=== PATIENT | female | born 1960 | race African-American/Black ===

== ENCOUNTER 2017-08-01 10:55 | Emergency (ER) | payer OTHER ==
--- NOTE | 2017-08-01 11:29 | RAD ---
PORTABLE CHEST: HISTORY: Cough. COMPARISON: 09/19/2010 FINDINGS: Heart size and mediastinum are within normal limits. The lungs are clear of infiltrates. No signif icant bony findings. IMPRESSION: No active intrathoracic disease. POS: [facility]
[2017-08-01 11:45] LABS: #Eosinphils 0.2 thou/uL (0.0-0.7); #Lymphocytes 1.7 thou/uL (1.20-3.40); #Monocytes 0.7 thou/uL (0.11-0.59); #Neutrophils 3.1 thou/uL (1.40-6.50); %Basophils 0.4 % (0.0-1.0); %Lymphocytes 29.8 % (21.0-51.0); %Monocytes 11.7 % (0.0-10.0); Hematocrit 41.4 % (36.0-47.0); Mean Platelet Volume 8.5 fL (7.4-10.4); White Blood Cell (WBC) Count 5.7 thou/uL (4.8-10.8)
[2017-08-01 12:05] LABS: ALT (SGPT) 14 U/L (8-55); AST (SGOT) 20 U/L (5-34); Alkaline Phosphatase 60 U/L (40-150); Anion Gap 16 mmol/L (10-20); BUN (Urea Nitrogen) 13 mg/dL (9.8-20.1); Bilirubin, Total 0.6 mg/dL (0.2-1.2); CK (CPK) 240 U/L (29-168); Calc. Creatinine Clearance 0 mL/min (70-130); Calcium 9.1 mg/dL (7.8-10.44); Carbon Dioxide 24 mmol/L (22-29); Chloride 103 mmol/L (98-107); Estimated GFR-MDRD 88; Globulin 4.1 g/dL (2.4-3.5); Protein, Total 8.2 g/dL (6.0-8.3)
[2017-08-01] MEDS ORDERED: methylPREDNISolone Sod Succ/PF 125 MG/2 ML VIAL ONE (12:07)
[2017-08-01] MEDS ORDERED: Sterile Water 10 ML ONE (12:07)
[2017-08-01] MEDS ORDERED: Promethazine HCl 25 MG/ML VIAL ONE (12:07)
[2017-08-01] MEDS ORDERED: Albuterol Sulfate 2.5 mg/0.5 ml Neb ONE (12:09)
[2017-08-01] MEDS ORDERED: Sodium Chloride For Inhalation 0.9% 3 ML NEB ONE ×2 (12:09→13:34)
[2017-08-01 12:10] LABS: Troponin I Less than 0.010 ng/mL (< 0.028)
[2017-08-01] MEDS ORDERED: Albuterol Sulfate 1.25 MG/3 ML NEB ONE (13:34)
== END 2017-08-01 14:30 | disposition home or self-care (01) ==
LOC: ERS 10:55
DX: J44.1 Chronic obstructive pulmonary disease with (acute) exacerbation (principal); I10 Essential (primary) hypertension; F32.9 Major depressive disorder, single episode, unspecified; F41.9 Anxiety disorder, unspecified; F17.210 Nicotine dependence, cigarettes, uncomplicated; Z79.899 Other long term (current) drug therapy
CPT/HCPCS: 36415; 71010; 80053; 82550; 82553; 84484; 85025; 94640; 96365; 96375; A4216; J2550; J2930; J7611

== ENCOUNTER 2017-10-14 21:12 | Observation (INO) | payer OTHER ==
[2017-10-14 22:20] LABS: #Basophils 0.1 thou/uL (0.0-0.2); #Eosinphils 0.2 thou/uL (0.0-0.7); #Lymphocytes 1.7 thou/uL (1.20-3.40); #Monocytes 0.4 thou/uL (0.11-0.59); #Neutrophils 1.6 thou/uL (1.40-6.50); %Basophils 1.4 % (0.0-1.0); %Eosinophils 5.9 % (0.0-10.0); %Lymphocytes 43.8 % (21.0-51.0); %Monocytes 9.8 % (0.0-10.0); %Neutrophils 39.1 % (42.0-75.0); Hemoglobin 12.9 g/dL (12.0-16.0); Mean Corpuscular HGB CONC 32.2 g/dL (32.0-36.0); Mean Corpuscular Hemoglobin 27.6 pg (27.0-31.0); Mean Corpuscular Volume 85.5 fl (81.0-99.0); Mean Platelet Volume 8.6 fL (7.4-10.4); Platelet Count 218 thou/uL (130-400); RBC Distribution Width 11.9 % (11.5-14.5); Red Blood Cell (RBC) Count 4.68 mill/uL (4.20-5.40)
[2017-10-14 22:41] LABS: ALT (SGPT) 12 U/L (8-55); AST (SGOT) 19 U/L (5-34); Albumin 4.6 g/dL (3.5-5.0); Alkaline Phosphatase 69 U/L (40-150); Anion Gap 12 mmol/L (10-20); BUN (Urea Nitrogen) 10 mg/dL (9.8-20.1); Bilirubin, Total 0.4 mg/dL (0.2-1.2); Calc. Creatinine Clearance 0 mL/min (70-130); Calcium 9.7 mg/dL (7.8-10.44); Carbon Dioxide 28 mmol/L (22-29); Chloride 101 mmol/L (98-107); Estimated GFR-MDRD 83; Globulin 3.5 g/dL (2.4-3.5); Glucose 85 mg/dL (70-105); Potassium 3.6 mmol/L (3.5-5.1); Protein, Total 8.1 g/dL (6.0-8.3); Sodium 137 mmol/L (136-145)
[2017-10-15 00:14] LABS: INR-International Normal Ratio 0.9; Prothrombin Time 12.5 SEC (12.0-14.7)
[2017-10-15 00:20] LABS: CKMB 0.9 ng/mL (0-6.6); Troponin I Less than 0.010 ng/mL (< 0.028)
[2017-10-15] MEDS ORDERED: Acetaminophen 500 MG TAB ONE (01:22)
[2017-10-15] MEDS ORDERED: diphenhydrAMINE 25 MG CAP ONE (01:22)
[2017-10-15] MEDS ORDERED: Clopidogrel Bisulfate 75 MG TAB ONE ×2 (01:28→08:32)
[2017-10-15] MEDS ORDERED: Metoclopramide HCl 10 MG TAB PO SCH (01:45)
[2017-10-15] MEDS ORDERED: Bupivacaine 0.5% 10 ML VIAL ONE (04:07)
[2017-10-15] MEDS ORDERED: Albuterol Sulfate 1.25 MG/3 ML NEB NEB PRN (04:57)
[2017-10-15] MEDS ORDERED: diphenhydrAMINE 50 MG/ML VIAL IVP SCH (05:42)
[2017-10-15] MEDS ORDERED: Metoclopramide HCl 10 MG/2 ML VIAL IVP SCH (05:42)
[2017-10-15] MEDS ORDERED: Metoclopramide HCl 10 MG/2 ML VIAL IVP PRN (05:42)
--- NOTE | 2017-10-15 08:02 | RAD ---
FRONTAL VIEW CHEST: INDICATION: Weakness, stroke. FINDINGS: Lungs are hyperinflated. There is no consolidation or effusion. Cardiac silhouette is accentuated b y the portable technique. Reference is made to 08/01/17. IMPRESSION: No lobar consolidation. POS: [facility]
--- NOTE | 2017-10-15 08:42 | CT ---
PRELIMINARY REPORT/[facility]/EMERGENCY AFTER HOURS PROCEDURE: EXAM: CT Head Without Intravenous Contrast EXAM DATE/TIME: Exam ordered 10/15/2017 12:39 AM CLINICAL HISTORY: 56 years old, female; Signs and symptoms; Dizziness TECHNIQUE: Axial computed tomography images of the head/brain without intravenous contrast. COMPARISON: No relevant prior studies available. FINDINGS: Brain: Mild generalized volume loss of the brain. No hemorrhage. No significant white matter disease. Ventricles: Unremarkable. No ventriculomegaly. Bones/joints: Unremarkable. No acute fracture. Soft tissues: Unremarkable. Sinuses: Unremarkable as visualized. No acute sinusitis. Mastoid air cells: Unremarkable as visualized. No mastoid effusion. IMPRESSION: No acute findings. Thank you for allowing us to participate in the care of your patient. Dictated and Authenticated by: Leadner Vale MD 10/15/2017 12:57 AM Central Time ([place] & [place]) FINAL REPORT HEAD CT NONCONTRAST: FINDINGS/IMPRESSION: Agree with preliminary interpretation. No acute intracranial hemorrhage or mass effect. QA POS: [facility]
[2017-10-15] MEDS ORDERED: Acetaminophen 325 MG TAB ONE (09:03)
[2017-10-15] MEDS ORDERED: Simethicone Chewable 80 MG TAB PO PRN (11:12)
--- NOTE | 2017-10-15 11:22 | MRI ---
MRI BRAIN WITHOUT CONTRAST: TECHNIQUE: Multiplanar multisequential imaging of brain obtained. HISTORY: Headache. Tooth pain. Right facial numbness and dizziness. FINDINGS: Ventricles are normal size and position. There is no evidence of restricted diffusion. There is no evidence of infarct, mass, or edema. Very mild ischemic white matter changes are seen. Intracranial internal carotid arteries, cerebral arteries, and basilar arteries show flow voids. Dural venous si nuses are patent. Paranasal sinuses and mastoids appear clear. IMPRESSION: No acute abnormality. POS: [facility]
[2017-10-15] MEDS: Mometasone/Formoterol 120 PUFF INHALER INH SCH ×2 (14:37→18:21)
--- NOTE | 2017-10-15 15:10 | ULT ---
CAROTID ULTRASOUND WITH FLAHERTY SCALE AND DOPPLER DUPLEX COLOR FLOW IMAGING SPECTRAL ANALYSIS PERFORMED: CLINICAL INDICATION: Right side facial tingling, paresthesias. FINDINGS: There is minimal intimal thickening/plaque formation of the carotid arteries. PEAK SYSTOLIC VELOCITY (CM/S): Right CCA 100 Left CCA 114 Right ICA 89 Left ICA 91 There is antegrade flow within the visualized bilateral vertebral arteries. IMPRESSION: 1. No hemodynamically significant stenosis of the right internal carotid artery. 2. No hemodynamically significant stenosis of the left internal carotid artery. POS: [facility]
--- NOTE | 2017-10-15 15:26 | EKG ---
Test Reason : Blood Pressure : / mmHG Vent. Rate : 091 BPM Atrial Rate : 091 BPM P-R Int : 138 ms QRS Dur : 074 ms QT Int : 380 ms P-R-T Axes : 062 044 065 degrees QTc Int : 467 ms Normal sinus rhythm Normal ECG Confirmed by MARCE FINK M.D. ([id number]), editor continuity and script JULISA DELANEY ([id number]) on 10/15/2017 3:26:25 PM Referred By: Confirmed By:MARCE FINK M.D.
[2017-10-15 17:55] VITALS: BMI 21.9
--- NOTE | 2017-10-15 18:49 | HP-2 ---
DATE OF ADMISSION: 10/15/2017 DATE OF SERVICE: 10/15/2017 ATTENDING: Danyelle Castro M.D. RESIDENT: Nat Pimentel M.D. CODE STATUS: FULL. HISTORIAN: Patient. PRIMARY CARE PHYSICIAN: [facility]. CHIEF COMPLAINT: Numbness and tingling in the patient's right lip and right cheek. HISTORY OF PRESENT ILLNESS: This is a 56-year-old female with a past medical history of hypertension who presents with continuing tingling in the right side of her cheek and face since morning. She says that she woke up and went to the bathroom and suddenly on the right side of her face by her mouth, she felt numbness and tingling. She also felt that her speech was distorted. She also feels like her ear is swollen and she has pain on the right side of her face as well as a headache as well as the unilateral headache on the right side. She states that she has had a headache in the frontal region, mostly on the right side since Tuesday. She also endorses some nausea and vomiting. Says she vomited on Tuesday. Says she still reports some nausea now. She states she feels like she has ringing in her ears and some dizziness that has been going on since Tuesday. She says when she lies on her back, the the room is spinning, and she says when she stood up fast on Tuesday, she almost collapsed. She said she feels weak all over and very tired and sluggish. She says her speech has felt slurred since Tuesday. PAST MEDICAL HISTORY: Subclinical hyperthyroidism, COPD, H. pylori infection in 02/2017, hepatitis C, prediabetes, hypertension, anxiety, depression, and insomnia. PAST SURGICAL HISTORY: , bilateral tubal ligation, tonsillectomy and complete hysterectomy. ALLERGIES: ASPIRIN, NSAIDS, COMPAZINE, PERCOCET, DARVOCET, CODEINE, HYDROCODONE. FAMILY HISTORY: Grandfather with stroke. SOCIAL HISTORY: She says she smoked 1 pack per day for about 6 months, but has smoked off and on since 2001. She thinks that she is on average smokes a half a pack per day for 16 years, making it around 8-year smoking history, although documents from the clinic report 20-year smoking history. Denies alcohol, endorses crack cocaine abuse that she is a recovering addict and has been clean for 2-3 weeks. REVIEW OF SYSTEMS: GENERAL: Denies fevers or chills. EYES: Denies vision changes or eye pain. ENT: Endorses tooth pain. ENT: Denies nasal congestion. RESPIRATORY: Denies cough, congestion, shortness of breath. CARDIOVASCULAR: Denies chest pain, palpitations. GASTROINTESTINAL: Endorses nausea, vomiting. Denies diarrhea or constipation. GENITOURINARY: Denies incontinence, dysuria. SKIN: Denies rash, lesions. MUSCULOSKELETAL: Endorses pain in the right lateral face. NEUROLOGIC: Endorses generalized weakness. Endorses numbness and tingling on the right side of her face. Denies syncope. Denies seizures. PSYCHIATRIC: Endorses anxiety, depression. In the ER, she had 1 liter of normal saline, she received 75 mg of Plavix, and she received 25 mg of Benadryl and 10 mg of Reglan. She also received 1000 mg of Tylenol. PHYSICAL EXAMINATION: VITAL SIGNS: Blood pressure 134/74, pulse 78, respiratory rate 16, T-max 98.9, pulse oximetry 98% on room air, current weight 61 kilograms. GENERAL: Alert and oriented x4, no apparent distress. Thin, appropriately interactive. EYES: PERRLA, EOMI. Conjunctivae within normal limits. ENT: Tympanic membranes pearly her without bulging or erythema. Nasal mucosa and oropharynx within normal limits; however, poor dentition. One loose tooth on the left side. Evidence of tooth decay. NECK: Supple, no lymphadenopathy or thyromegaly. CARDIOVASCULAR: Regular rate and rhythm. No murmurs, rubs or gallops appreciated. RESPIRATORY: Normal effort. ABDOMEN: Soft, nontender to palpation. EXTREMITIES: No clubbing or cyanosis. MUSCULOSKELETAL: Structure within normal limits. Tone within normal limits. NEUROLOGIC: Decreased sensation on the right side of her face. Patellar reflex within normal limits. Cranial nerves II-XII intact. GCS 15. PSYCHIATRIC: Appropriate. LABORATORY DATA: CBC, 4.0, 12.9, 40, 218. Neutrophils 39.1%, low. CMP 137, 3.6, 101, 28, 10, 0.85, 85. AST, ALT, alkaline phosphatase 19,12, 69. Total protein 8.1, albumin 4.6, calcium 9.7. PT 12.5, INR 0.9, total bilirubin 0.4, CK-MB 0.9, troponin less than 0.01. EKG: Normal sinus rhythm. Chest x-ray, hyperexpansion, no infiltrate or consolidation. Imaging, head CT without contrast, no evidence of intracranial hemorrhage. ASSESSMENT AND PLAN: 56-year-old female with past medical history of hypotension who presents with 2-day history of right-sided facial numbness and tingling, headache, nausea, vomiting, negative CT for a bleed and a toothache, admitted for a cerebrovascular accident/transient ischemic attack, rule out, versus a complex migraine. 1. CVA rule out vs Complex Migraine: The patient's CT of the head without contrast was negative for a bleed. We will order a lipid panel. The patient was started on statin, was also ordered an MRI and carotid Dopplers to rule out a cerebrovascular accident. The patient's tingling could be associated with a complex migraine. She has right-sided pain with nausea and vomiting. We will provide Reglan IV, IV Benadryl and we will provide dexamethasone 10 mg IV x1 to help prevent recurrence of her headache. 2. Toothache, at the left incisor, which could be contributing to patient's tingling, numbness and head pain. Patient states that she is planning to see a dentist to get her tooth pulled and get dentures. 2. Crack cocaine abuse. Patient has been sober for 2 weeks. We will order a urine drug screen. 3. Hypertension, we will restart her home medications. 4. Hyperthyroidism. We will order a TSH. DISPOSITION/LENGTH OF HOSPITAL STAY: 2-3 days. Symptomatic medications will be provided. History and physical exam as well as management discussed with Dr. Castro. [facility]
[2017-10-15] MEDS ORDERED: Promethazine HCl 25 MG/ML VIAL IM/IV PRN (18:54)
[2017-10-15] MEDS: Sodium Chloride 0.9% 1,000 ML IV SCH ×2 (20:09→21:11)
[2017-10-15] MEDS: Amlodipine 5 MG TAB PO SCH (20:13)
[2017-10-15] MEDS: Clopidogrel Bisulfate 75 MG TAB PO SCH (20:14)
[2017-10-15] MEDS: Nicotine 21 MG PATCH TD SCH (21:11)
[2017-10-15] MEDS: Acetaminophen 325 MG TAB PO PRN (21:12)
[2017-10-15 22:39] LABS: Cocaine Metabolite Screen Detected (NotDetected); Medtox Reader # READER 1
[2017-10-15 22:40] LABS: Amphetamine Not Detected (NotDetected); Barbiturates Screen Not Detected (NotDetected); Benzodiazepine Screen Not Detected (NotDetected); Medtox Control Line Valid? VALID (VALID); Methadone Not Detected (NotDetected); Methamphetamine Not Detected (NotDetected); Opiate Screen Not Detected (NotDetected); Oxycodone Screen Not Detected (NotDetected); Phencyclidine (PCP) Not Detected (NotDetected); THC/Cannabinoid Screen Not Detected (NotDetected); Tricyclic Screen Detected (NotDetected)
--- NOTE | 2017-10-15 23:39 | HP ---
DATE OF SERVICE: 10/15/2017 The patient is a 56-year-old female who presented to the ER with right-sided facial numbness and ting ling that has been present for approximately two days. The patient noted that a few days ago, her fa ravindra noted that she had slurred speech and they were not able to understand her very well. This appa rently resolved, but the tingling persisted. She notes that currently the tingling as noted just glen und her mouth, but at its worst it included the entire right side of her face going up into her hairl ine as well. The patient has been admitted for a stroke workup. It should be noted that she does mares ve a history of headaches, but she has never had a headache that has presented like this in the past. The patient already had a CT of the brain, which did not show anything acute. She will have a hu tid Dopplers as well as MRI of the brain. We will get an echo and Neurology Consult. The patient de nies any other weakness at this time. I have discussed the case in detail with the resident physiclisandra n and have repeated pertinent portions of the history and physical by myself. Please see the residen t's dictation for the full documentation of the history and physical, assessment and plan.
[2017-10-16] MEDS: Nicotine 21 MG PATCH TD SCH (04:23)
[2017-10-16 05:39] LABS: Anion Gap 10 mmol/L (10-20); BUN (Urea Nitrogen) 10 mg/dL (9.8-20.1); Calc. Creatinine Clearance 82 mL/min (70-130); Carbon Dioxide 27 mmol/L (22-29); Chloride 106 mmol/L (98-107); Cholesterol 146 mg/dl (< 200 Desired); Estimated GFR-MDRD Greater than 90; Glucose 108 mg/dL (70-105); HDL Cholesterol 72 mg/dL (>60 Neg Risk); LDL Cholesterol, Calculated 64 mg/dL; Potassium 3.3 mmol/L (3.5-5.1); Sodium 140 mmol/L (136-145); Triglycerides 52 mg/dL (Less than 150)
[2017-10-16 05:45] LABS: Band 1 % (5-11); Eosinophils 5 % (0-10); Hemoglobin 10.9 g/dL (12.0-16.0); Lymphocytes 48 % (21-51); MDiff Complete? YES; Mean Corpuscular HGB CONC 32.1 g/dL (32.0-36.0); Mean Corpuscular Hemoglobin 27.5 pg (27.0-31.0); Mean Corpuscular Volume 85.6 fl (81.0-99.0); Mean Platelet Volume 8.5 fL (7.4-10.4); Monocytes 9 % (0-10); Neutrophil 37 % (42-75); Platelet Count 175 thou/uL (130-400); Red Blood Cell (RBC) Count 3.97 mill/uL (4.20-5.40); White Blood Cell (WBC) Count 4.6 thou/uL (4.8-10.8)
--- NOTE | 2017-10-16 06:09 | PDOC.FM ---
- Subjective Subjective: Patient is still complaining of numbness and tingling to the right side of her face. She states her headache is resolved with no further problems. She also notes some nausea, but has said that all of the possible nausea medications she has been offered either don't work for her or she has an allergy to. We had a long conversation today about her struggles with drug addiction. We talked extensively about the dangers of cocaine abuse and her tobacco abuse. She states she has had an addiction off and on for 30 years and has a good support system to be able to quit alf. She is skeptical at physicians at this time because of some previous bad experiences with her drug addiction. She has no other concerns this morning. - Objective Vital Signs & Weight: Vital Signs (12 hours) Temp Pulse Resp BP BP Pulse Ox 10/16/17 04:40 98.4 F 83 16 122/62 95 10/15/17 23:33 98.9 F 99 18 117/82 95 10/15/17 20:18 98.2 F 89 20 122/66 100 10/15/17 20:13 87 10/15/17 19:40 98.2 F 89 20 10/15/17 18:27 99.0 F 87 16 10/15/17 18:12 99.0 F 87 16 116/71 97 Weight Weight 59.874 kg I&O: 10/14/17 10/15/17 10/16/17 06:59 06:59 06:59 Intake Total 1344 Output Total 650 Balance 694 Result Diagrams: 10/16/17 04:42 10/16/17 04:42 <Kulwinder Mcdaniel - Last Filed: 10/16/17 07:38> - Objective Vital Signs & Weight: Vital Signs (12 hours) Temp Pulse Resp BP BP Pulse Ox 10/16/17 16:26 84 20 10/16/17 15:38 98.3 F 82 16 118/67 98 10/16/17 12:59 80 20 100 10/16/17 12:52 100 10/16/17 12:48 80 20 100 10/16/17 11:08 98.1 F 80 20 125/70 95 10/16/17 08:16 83 122/62 10/16/17 08:15 98.0 F 83 16 10/16/17 07:38 98.0 F 78 16 112/61 96 10/16/17 04:40 98.4 F 83 16 122/62 95 Weight Weight 59.874 kg I&O: 10/15/17 10/16/17 10/17/17 06:59 06:59 06:59 Intake Total 1344 Output Total 650 Balance 694 Result Diagrams: 10/16/17 04:42 10/16/17 04:42 <Danyelle Castro - Last Filed: 10/16/17 16:37> Phys Exam - Physical Examination HEENT: moist MMs Poor dentition Neck: no nodes Respiratory: no wheezing, clear to auscultation bilateral Cardiovascular: RRR, no significant murmur Gastrointestinal: soft, non-tender, no distention, positive bowel sounds Musculoskeletal: no edema Neurological: moves all 4 limbs Numbness and parathesias to Right side of face Lymphatic: no nodes Psychiatric: normal affect, A&O x 3 Skin: no rash <Kulwinder Mcdaniel - Last Filed: 10/16/17 07:38> Dx/Plan (1) TIA (transient ischemic attack) Status: Acute Plan: -Symptoms still present -MRI negative -Carotid Dopplers negative -Neurology consultation pending (2) Cocaine abuse Code(s): F14.10 - COCAINE ABUSE, UNCOMPLICATED Status: Acute Plan: -UDS positive -Recommend cessation (3) HTN (hypertension) Code(s): I10 - ESSENTIAL (PRIMARY) HYPERTENSION Status: Acute Plan: -Continue home meds (4) Hepatitis C Code(s): B19.20 - UNSPECIFIED VIRAL HEPATITIS C WITHOUT HEPATIC COMA Status: Acute Plan: -Untreated -Will recommend outpatient follow up for this -Programs available for unfunded patients (5) Tobacco abuse Code(s): Z72.0 - TOBACCO USE Status: Acute Plan: -Recommend cessation (6) Dental caries Code(s): K02.9 - DENTAL CARIES, UNSPECIFIED Status: Acute Plan: -Recommend outpatient dental consultation (7) Hypokalemia Code(s): E87.6 - HYPOKALEMIA Status: Acute Plan: -Mild 3.3 this AM -Will replenish (8) Hyperthyroidism Code(s): E05.90 - THYROTOXICOSIS, UNSP WITHOUT THYROTOXIC CRISIS OR STORM Status: Acute Plan: -TSH 0.223 -Will check free T4 -No signs or symptoms this AM -Recommend outpatient follow up - Plan Plan: Await neuro recs and then discharge planning made from there. <Kulwinder Mcdaniel - Last Filed: 10/16/17 07:38> Attending Addendum - Attending Addendum I personally evaluated the patient and discussed the management with Dr. Mcdaniel. I agree with the History, Examination, Assessment and Plan documented above with any addition or exceptions noted below. The patient's MRI was negative for stroke. She still has numbness and tingling on the face. Awaiting neurology evaluation. Counseled on cocaine abuse. <Danyelle Castro - Last Filed: 10/16/17 16:37>
[2017-10-16] MEDS ORDERED: Potassium Chloride 20 MEQ TAB PO SCH (06:15)
[2017-10-16 07:04] LABS: Free T4 (Free Thyroxine) 0.89 ng/dL (0.70-1.48)
[2017-10-16] MEDS: Clopidogrel Bisulfate 75 MG TAB PO SCH (08:16)
[2017-10-16] MEDS: Amlodipine 5 MG TAB PO SCH (08:16)
[2017-10-16] MEDS ORDERED: Fluconazole 100 MG TAB PO SCH (09:30)
[2017-10-16] MEDS: Acetaminophen 325 MG TAB PO PRN ×2 (10:17→16:59)
[2017-10-16 10:43] LABS: Folate (Folic Acid) 14.1 ng/mL (7.0-31.4)
[2017-10-16] MEDS: Mometasone/Formoterol 120 PUFF INHALER INH SCH ×2 (12:59→18:38)
[2017-10-16 16:22] VITALS: BP 118/67; TEMP 98.3
--- NOTE | 2017-10-16 22:38 | CON ---
DATE OF CONSULTATION: 10/16/2017 REFERRING PROVIDER: Kulwinder Mcdaniel MD REASON FOR CONSULTATION: Right-sided facial paresthesia. HISTORY OF PRESENT ILLNESS: Ms. Mays is a pleasant 56-year-old -[place]izen Of [place] female, who has been consulted for evaluation of right-sided facial paresthesia. Patient reports that approximately 2-3 weeks ago, she started having pain in the left side of her tooth and she was found to have a too th abscess. She had gone to the emergency room and was advised to take antibiotics and see a dentist . She said that at that time she had developed pain on the non-affected right side of the face. She noted that over the past 3-4 days, this pain has been exacerbating. The pain is located in the righ t posterior auricular region that radiates to the right side of the face and jaw. She also had numbn ess in right side of the gum as well as right side of the tongue. She exclusively sensitive in that region. She is unable to brush her teeth, unable to chew, unable to take any liquids or solid food, which has resulted in difficulty with getting anything down over the past few days. She does not com plain of any headache, chest pain, palpitation, numbness, tingling on the upper or lower extremities or weakness in upper and lower extremities. She denies any difficulty with balance. She does compla in of having blurry vision in the right eye as well as feeling of dizziness over the past few days. She denies any vertigo-type sensation. PAST MEDICAL HISTORY: Significant for subclinical hyperthyroidism, COPD, H. pylori infection, hepati tis C, diabetes, hypertension, anxiety, depression, and insomnia. PAST SURGICAL HISTORY: Significant for , bilateral tubal ligation, tonsillectomy, and compl ete hysterectomy. CURRENT MEDICATIONS: Please review MAR. ALLERGIES: Include ASPIRIN, NSAIDS, COMPAZINE, PERCOCET, DARVOCET, CODEINE, HYDROCODONE, CYCLOBENZAP RINE. FAMILY HISTORY: Noncontributory. SOCIAL HISTORY: She smokes 1 pack per day. She denies alcohol use. She does report of having used crack cocaine. REVIEW OF SYSTEMS: As mentioned above in HPI, otherwise negative. PHYSICAL EXAMINATION: VITAL SIGNS: Blood pressure 118/67, pulse of 82, temperature of 98.3, respirations of 16, O2 sats of 98% on room air. GENERAL: Well-developed, well-nourished -[place]izen [place] female, in no apparent distress. RESPIRATORY: Clear to auscultation bilaterally. CARDIOVASCULAR: Regular rate and rhythm. NEUROLOGIC: Mental status: The patient is awake, alert, oriented x3. Speech and language: Fluent speech. Cranial nerves: Pupils are 3 mm and reactive. Visual robbins are intact. Extraocular muscl es are intact. No nystagmus noted. Face is symmetric. Tongue and uvula are midline. Motor exam sh owed normal tone and bulk with 5/5 strength in both upper and lower extremities. Sensory: Sensation is intact and symmetric. Deep tendon reflexes 2+ reflexes in both upper and lower extremities. Bab inski: Plantar responses flexion bilaterally. Coordination intact to [id number] and finger tapping bilaterally. Gait and Romberg are normal. LABORATORY DATA: I reviewed which included CBC, CMP, TSH, free T3, free T4, B12, folate, lipid profi le and urine drug screen, which is significant for WBC of 4.6, hemoglobin 10.9, hematocrit 34.0, pota ssium of 3.3. TSH of 0.2333. Urine drug screen was positive for cocaine and tricyclics. IMAGING STUDIES: MRI brain without contrast was reviewed, which showed no acute intracranial abnorma lity. Carotid Doppler results were reviewed, which showed no hemodynamically significant stenosis. IMPRESSION: Trigeminal neuralgia. Ms. Mays is a pleasant 56-year-old female who presented with right-sided facial paresthesia over the past few days. Based on the description and location of the symptoms, this is likely suggestive of trigeminal neuralgia. I have discussed with the patient that she needs to contr ol her blood pressure and diabetes and avoid taking cocaine and crack which can increase the risk for having a stroke. At this time, I would recommend starting her on 300 mg at bedtime for trigeminal n euralgia which may be increased to 300 mg b.i.d. If patient remains stable medically, patient is dis charged to home.
--- NOTE | 2017-10-17 01:04 | DIS-2 ---
DATE OF ADMISSION: 10/15/2017 DATE OF DISCHARGE: 10/16/2017 RESIDENT: Dr. Mcdaniel ADMITTING ATTENDING: Dr. Castro. DISCHARGE ATTENDING: Dr. Castro. CONSULTATIONS: With Neurology and Dr. Terry. PROCEDURES: 1. The patient underwent a chest x-ray on 10/14/2017 that showed no lobar consolidation. 2. She underwent a brain CT on 10/15/2017 that showed no acute findings. 3. She also underwent a carotid Doppler study on 10/15/2017 that showed no hemodynamically significant stenosis of the right or left internal carotid arteries. 4. She then underwent a brain MRI on 10/15/2017 that showed no acute abnormality. PRIMARY DIAGNOSIS: 1. Trigeminal neuralgia. 2. Cocaine abuse. 3. Hypertension. 4. Hepatitis C. 5. Tobacco abuse. 6. Dental caries. 7. Hypokalemia. 8. Hyperthyroidism. DISCHARGE MEDICATIONS: 1. Benadryl 50 mg at bedtime. 2. Doxepin 150 mg at bedtime. 3. Amlodipine 10 mg daily. 4. Hydrochlorothiazide 25 mg daily. 5. Nexium 60 mg q.a.m. 6. Risperdal 0.5 mg at bedtime. 7. Gabapentin 300 mg at bedtime. DISCONTINUED MEDICATIONS: None. HISTORY OF PRESENT ILLNESS AND HOSPITAL COURSE: This is a 56-year-old female with a past medical history of hypertension who presents with continued tingling in the right side of her cheek and face since morning. She states she woke up and went to the bathroom. Suddenly on the right side of her face by her mouth, she felt numbness and tingling. She also felt her speech was distorted. She also feels like her ears are swollen and the pain in the right side of her face as well as headache as well as a unilateral headache on the right side. States she has had a headache in the frontal region, mostly on the right side since Tuesday. She also endorses some nausea and vomiting. She says she has vomited on Tuesday as well. She says she still reports some dizziness that has been going on since Tuesday. She says when she lies on her back, the room is spinning. Then she says when she stood up fast on Tuesday, she almost collapsed. She said she feels weak all over and very tired and sluggish. She says her speech is felt slurred since Tuesday. During this hospitalization, the patient was continually complaining of numbness and paresthesias of the right side of her face. She said that her headache had resolved and not having any further new symptoms. She does note some nausea, but she had several allergies to all of the nausea medications that she tried in. We are not able to get her any other allergies instead of her Reglan, which she said did not work. We also had a long conversation about her drug addiction. She has not used cocaine in roughly 8 days even though her UDS was positive during this hospitalization. We talked extensively about the health complications that can come from her cocaine abuse as well as her tobacco abuse and she has agreed to stop using cocaine altogether and she will work on cessation of tobacco in the future as well. This patient had some notable lab values of a potassium of 3.3 that was replenished. On day of discharge, she also had a TSH that was 0.233. She had a B12 of 579, folate of 14.10, free T4 of 0.89. Her fasting lipid panel showed a cholesterol level of 146 and LDL of 64 and HDL of 72 and her UDS was positive for tricyclics and for cocaine metabolites. Patient was otherwise afebrile during this hospitalization. Her vital signs remained within normal limits and she had no other acute complications during this hospitalization. Dr. Terry came and saw this patient for the consultation and has determined that she has trigeminal neuralgia and has recommended she be started on gabapentin. He notes that she has no primary cause from a TIA or a CVA standpoint. Patient otherwise tolerated the hospitalization well and was discharged on appropriate condition. DISPOSITION: Stable. DISCHARGE INSTRUCTIONS: Location, she will be discharged home into her own care. Diet will be as tolerated with no restrictions. Activity will be as tolerated with no restrictions. Follow up will be with her primary care provider, Dr. Mir Van at [facility] in 3 days to discuss further management of her tobacco addiction and for her new onset trigeminal neuralgia. We wish this patient best of luck. GERMAIN
== END 2017-10-16 19:58 | disposition home or self-care (01) ==
LOC: ERS 21:12 → ERHOLD 10-15 02:29 → 2SW 10-15 17:22
PROVIDERS: ADMIT Family Medicine; ATTEND Family Medicine
DX: G50.0 Trigeminal neuralgia (principal); F14.10 Cocaine abuse, uncomplicated; F17.210 Nicotine dependence, cigarettes, uncomplicated; I10 Essential (primary) hypertension; B19.20 Unspecified viral hepatitis C without hepatic coma; K02.9 Dental caries, unspecified; E05.90 Thyrotoxicosis, unspecified without thyrotoxic crisis or storm; E87.6 Hypokalemia; F41.9 Anxiety disorder, unspecified; F32.9 Major depressive disorder, single episode, unspecified; K04.7 Periapical abscess without sinus; Z98.51 Tubal ligation status; Z79.899 Other long term (current) drug therapy; Z88.5 Allergy status to narcotic agent; Z88.8 Allergy status to other drugs, medicaments and biological substances; Z82.49 Family history of ischemic heart disease and other diseases of the circulatory system; Z90.710 Acquired absence of both cervix and uterus; Z90.89 Acquired absence of other organs; Z98.890 Other specified postprocedural states
CPT/HCPCS: 36415; 64400; 70450; 70551; 71045; 80048; 80053; 80061; 80306; 82553; 82607; 82746; 84439; 84443; 84481; 84484; 85025; 85610; 93005; 93306; 93880; 94640; 96360; 96361; 99406; G0378; J3490; J7620

== ENCOUNTER 2018-10-06 11:00 | Emergency (ER) | payer OTHER ==
[2018-10-06 11:38] LABS: #Basophils 0.1 thou/uL (0.0-0.2); #Eosinphils 0.2 thou/uL (0.0-0.7); #Monocytes 0.6 thou/uL (0.11-0.59); #Neutrophils 2.3 thou/uL (1.40-6.50); %Eosinophils 3.5 % (0.0-10.0); %Lymphocytes 38.4 % (21.0-51.0); %Monocytes 11.9 % (0.0-10.0); %Neutrophils 45.2 % (42.0-75.0); Mean Corpuscular HGB CONC 33.3 g/dL (32.0-36.0); Mean Corpuscular Hemoglobin 26.9 pg (27.0-31.0); Mean Corpuscular Volume 80.9 fL (78.0-98.0); Mean Platelet Volume 8.5 fL (7.4-10.4); Platelet Count 215 thou/uL (130-400); RBC Distribution Width 12.1 % (11.5-14.5); Red Blood Cell (RBC) Count 4.09 mill/uL (4.20-5.40); White Blood Cell (WBC) Count 5.2 thou/uL (4.8-10.8)
[2018-10-06 12:02] LABS: ALT (SGPT) 12 U/L (8-55); AST (SGOT) 16 U/L (5-34); Albumin 4.1 g/dL (3.5-5.0); Alkaline Phosphatase 57 U/L (40-150); Anion Gap 15 mmol/L (10-20); BUN (Urea Nitrogen) 18 mg/dL (9.8-20.1); Bilirubin, Total 0.4 mg/dL (0.2-1.2); Calc. Creatinine Clearance 0 mL/min (70-130); Calcium 9.1 mg/dL (7.8-10.44); Carbon Dioxide 22 mmol/L (22-29); Chloride 103 mmol/L (98-107); Estimated GFR-MDRD 79; Glucose 89 mg/dL (70-105); Potassium 4.2 mmol/L (3.5-5.1); Protein, Total 7.1 g/dL (6.0-8.3); Sodium 136 mmol/L (136-145)
[2018-10-06 12:10] LABS: Bilirubin Negative (Negative); Blood, Urine Negative (Negative); Clarity CLEAR (Clear); Glucose, Urine (Dipstick) Negative (Negative); Leukocyte Negative (Negative); Nitrite Negative (Negative); Protein, Urine (Dipstick) Negative (Neg-Trace); Specific Gravity, Urine 1.025 (1.002-1.036); pH, Urine 5.5 (5.0-9.0)
[2018-10-06] MEDS ORDERED: Pantoprazole 40 MG VIAL ONE (12:51)
[2018-10-06] MEDS ORDERED: Promethazine HCl 25 MG/ML VIAL ONE (12:51)
[2018-10-06] MEDS ORDERED: Acetaminophen 325 MG TAB ONE (12:51)
[2018-10-06] MEDS ORDERED: Famotidine/PF 20 mg/2ml Vial ONE (13:52)
[2018-10-06] MEDS ORDERED: methylPREDNISolone Sod Succ/PF 125 MG/2 ML VIAL ONE (13:52)
[2018-10-06] MEDS ORDERED: diphenhydrAMINE 50 MG/ML VIAL ONE (13:52)
[2018-10-06] MEDS ORDERED: Water For Inject, Bacteriostat 30 ML ONE (13:53)
--- NOTE | 2018-10-06 16:39 | CT ---
CT ABDOMEN AND PELVIS WITH IV CONTRAST: DATE: 10/06/2018. HISTORY: Lower abdominal pain with urination. Fever and chills. COMPARISON: 10/02/2016. FINDINGS: There are remote posterior right-sided rib fractures. Facet degenerative changes are seen in the low er lumbar spine. There is bilateral pelvocaliectasis greater on the right with prominence of each ureter again which i s a symmetric finding. The urinary bladder is distended which may account for the pelvocaliectasis o n this exam. There is minimal linear scarring present at each lung base. Vascular calcifications are seen in the abdominal aorta and involving the iliac arteries. The liver, spleen, pancreas, and bilateral adrenal glands demonstrate a normal CT appearance. No dilated loops of small bowel are seen. There is a small amount of retained fecal material seen thr oughout the colon. The appendix is unable to be delineated due to multiple unopacified structures in the pelvis. Howeve r, no definitive secondary signs are seen to suggest appendicitis. No free fluid, fluid collection, or lymphadenopathy is seen in the abdomen or pelvis. IMPRESSION: 1. Mild pelvocaliectasis bilaterally likely attributable to a distended urinary bladder. 2. Subcentimeter too small to characterize hypodense lesion in the mid portion right kidney. 3. No acute findings are seen in the abdomen or pelvis. 4. Small amount of retained fecal material is seen throughout the colon. 5. Nonvisualization of the appendix as described above. POS: [facility]
[2018-10-06] MEDS ORDERED: Bisacodyl 10 MG SUPP ONE (17:54)
[2018-10-06] MEDS ORDERED: Bisacodyl 5 MG TAB PO SCH (18:15)
[2018-10-06] MEDS ORDERED: Lidocaine 1% (PF) 30 ML VIAL ONE (18:28)
[2018-10-06] MEDS ORDERED: Azithromycin 250 MG TAB ONE (18:28)
[2018-10-06] MEDS ORDERED: cefTRIAXone\\ROCEPHIN 250 MG VIAL ONE (18:28)
[2018-10-08 19:03] LABS: Chlamydia by PCR Not Detected (NotDetected); GC by PCR Not Detected (NotDetected)
== END 2018-10-06 18:22 | disposition home or self-care (01) ==
LOC: ERS 11:00
DX: K59.00 Constipation, unspecified (principal); I10 Essential (primary) hypertension; F32.9 Major depressive disorder, single episode, unspecified; F41.9 Anxiety disorder, unspecified; F17.210 Nicotine dependence, cigarettes, uncomplicated
CPT/HCPCS: 36415; 74177; 80053; 81003; 85025; 87086; 87480; 87491; 87510; 87591; 87660; 96365; 96366; 96372; 96375; C9113; J0696; J1200; J2001; J2550; J2930; S0028

== ENCOUNTER 2020-07-12 23:12 | Emergency (ER) | payer OTHER ==
[2020-07-13] MEDS ORDERED: Promethazine 25 MG TAB ONE (00:07)
[2020-07-13] MEDS ORDERED: Acetaminophen 500 MG TAB ONE (00:13)
[2020-07-13 00:23] LABS: Bacteria/HPF None Seen HPF (None Seen); Bilirubin Negative (Negative); Blood, Urine Negative (Negative); Clarity Clear (Clear); Glucose, Urine (Dipstick) Normal (Negative); Ketone, Urine Negative (Negative); Leukocyte 500 Leu/uL (Negative); Nitrite Negative (Negative); Protein, Urine (Dipstick) Negative (Neg-Trace); RBC/HPF 0-3 HPF (0-3); Specific Gravity, Urine 1.021 (1.002-1.036); pH, Urine 5.5 (5.0-9.0)
[2020-07-13] MEDS ORDERED: Azithromycin 250 MG TAB ONE (00:40)
[2020-07-13] MEDS ORDERED: cefTRIAXone\\ROCEPHIN 250 MG VIAL ONE (00:40)
[2020-07-13 17:04] LABS: Chlamydia by PCR Not Detected (NotDetected); GC by PCR Not Detected (NotDetected)
== END 2020-07-13 01:23 | disposition home or self-care (01) ==
LOC: ERS 23:12
DX: N39.0 Urinary tract infection, site not specified (principal); A64 Unspecified sexually transmitted disease; I10 Essential (primary) hypertension; F32.9 Major depressive disorder, single episode, unspecified; F41.9 Anxiety disorder, unspecified; F17.210 Nicotine dependence, cigarettes, uncomplicated; Z87.01 Personal history of pneumonia (recurrent)
CPT/HCPCS: 81003; 81015; 87086; 87480; 87491; 87510; 87591; 87660; 96372; 99283; J0696; Q0169

== ENCOUNTER 2022-04-02 15:12 | Outpatient (CLI) | payer OTHER | END 2022-04-02 15:13 | disposition home or self-care (01) | LOC: CT 15:12 | PROVIDERS: ATTEND Student in an Organized Health Care Education/Training Program | DX: Z12.2 Encounter for screening for malignant neoplasm of respiratory organs (principal); E04.1 Nontoxic single thyroid nodule; F17.210 Nicotine dependence, cigarettes, uncomplicated; R63.4 Abnormal weight loss; Z87.898 Personal history of other specified conditions | CPT/HCPCS: 71250; 76536 ==

== ENCOUNTER 2022-05-30 15:37 | Emergency (ER) | payer OTHER ==
[2022-05-30 16:37] LABS: #Eosinphils 0.1 thou/uL (0.0-0.7); #Lymphocytes 2.1 thou/uL (1.20-3.40); #Monocytes 0.7 thou/uL (0.11-0.59); #Neutrophils 4.4 thou/uL (1.40-6.50); %Basophils 0.7 % (0.0-1.0); %Eosinophils 1.8 % (0.0-10.0); %Monocytes 9.4 % (0.0-10.0); %Neutrophils 60.1 % (42.0-75.0); Hemoglobin 11.4 g/dL (12.0-16.0); Mean Corpuscular HGB CONC 33.6 g/dL (32.0-36.0); Mean Corpuscular Hemoglobin 28.2 pg (27.0-31.0); Mean Platelet Volume 8.2 fL (7.4-10.4); Platelet Count 210 thou/uL (130-400); Red Blood Cell (RBC) Count 4.03 mill/uL (4.20-5.40); White Blood Cell (WBC) Count 7.4 thou/uL (4.8-10.8)
[2022-05-30 16:45] LABS: Bilirubin Negative (Negative); Blood, Urine 2+ (Negative); Clarity Turbid (Clear); Glucose, Urine (Dipstick) Normal (Negative); Ketone, Urine Negative (Negative); Leukocyte 500 Leu/uL (Negative); Nitrite Negative (Negative); Protein, Urine (Dipstick) 100 mg/dL (Neg-Trace); Specific Gravity, Urine 1.031 (1.002-1.036); Squamous Epithelial 0-3 HPF (0-3); Urobilinogen 3 mg/dL (Less than 2); pH, Urine 5.5 (5.0-9.0)
[2022-05-30 16:48] LABS: BHCG - Serum Negative (NEGATIVE); Pregs Control Background? CLEAR/WHITE (CLR/WHITE); Pregs Control Bar Appear? YES (CONTROL BAR)
[2022-05-30 16:54] LABS: Bacteria/HPF 2+ HPF (None Seen); WBC/HPF 21-50 HPF (0-3)
[2022-05-30 17:06] LABS: ALT (SGPT) 14 U/L (8-55); AST (SGOT) 25 U/L (5-34); Alkaline Phosphatase 51 U/L (40-110); Anion Gap 17 mmol/L (10-20); BUN (Urea Nitrogen) 12 mg/dL (9.8-20.1); Bilirubin, Total 0.8 mg/dL (0.2-1.2); Calc. Creatinine Clearance 0 mL/min (70-130); Calcium 8.9 mg/dL (7.8-10.44); Carbon Dioxide 24 mmol/L (23-31); Chloride 101 mmol/L (98-107); Estimated GFR 76; Globulin 3.7 g/dL (2.4-3.5); Glucose 100 mg/dL (80-115); Potassium 4.8 mmol/L (3.5-5.1); Protein, Total 7.7 g/dL (5.8-8.1); Sodium 137 mmol/L (136-145)
[2022-05-30] MEDS ORDERED: Acetaminophen 500 MG TAB ONE (18:10)
[2022-05-30] MEDS ORDERED: Promethazine HCl 12.5 MG in Sodium Chloride 0.9% 50 ML IVPB SCH (18:15)
[2022-05-30] MEDS ORDERED: cefTRIAXone\\ROCEPHIN 1 GM VIAL ONE (19:29)
[2022-05-31 11:25] LABS: Chlamydia by PCR Not Detected (NotDetected); GC by PCR Not Detected (NotDetected)
== END 2022-05-30 20:23 | disposition home or self-care (01) ==
LOC: ERS 15:37
DX: N39.0 Urinary tract infection, site not specified (principal); N76.0 Acute vaginitis; R11.2 Nausea with vomiting, unspecified; I10 Essential (primary) hypertension; F17.210 Nicotine dependence, cigarettes, uncomplicated; Z79.899 Other long term (current) drug therapy
CPT/HCPCS: 70486; 74176; 80053; 81003; 81015; 83690; 84703; 85025; 87077; 87086; 87186; 87480; 87491; 87510; 87591; 87660; 96361; 96365; 96367; J0696; J2550

== ENCOUNTER 2023-01-23 07:15 | Emergency (ER) | payer OTHER ==
[2023-01-23] MEDS ORDERED: Acetaminophen 325 MG TAB ONE (07:56)
[2023-01-23 08:09] LABS: #Lymphocytes 1.1 thou/uL (1.20-3.40); #Monocytes 0.8 thou/uL (0.11-0.59); #Neutrophils 8.6 thou/uL (1.40-6.50); %Basophils 0.3 % (0.0-1.0); %Eosinophils 0.4 % (0.0-10.0); %Lymphocytes 10.2 % (21.0-51.0); %Monocytes 7.9 % (0.0-10.0); %Neutrophils 81.2 % (42.0-75.0); Hemoglobin 11.3 g/dL (12.0-16.0); Mean Corpuscular HGB CONC 32.3 g/dL (32.0-36.0); Mean Corpuscular Hemoglobin 27.5 pg (27.0-31.0); Mean Corpuscular Volume 85.2 fl (78.0-98.0); Mean Platelet Volume 8.4 fL (7.4-10.4); Platelet Count 228 10x3/uL (130-400); RBC Distribution Width 12.5 % (11.5-14.5); Red Blood Cell (RBC) Count 4.11 mill/uL (4.20-5.40); White Blood Cell (WBC) Count 10.5 10x3/uL (4.8-10.8)
[2023-01-23 08:37] LABS: Prothrombin Time 13.7 sec (12.0-14.7)
[2023-01-23 08:59] LABS: ALT (SGPT) 13 U/L (8-55); AST (SGOT) 30 U/L (5-34); Albumin 4.2 g/dL (3.4-4.8); Alcohol Less than 10 mg/dL (Less than 10); Alkaline Phosphatase 55 U/L (40-110); Anion Gap 15 mmol/L (10-20); BUN (Urea Nitrogen) 20 mg/dL (9.8-20.1); Bilirubin, Total 0.5 mg/dL (0.2-1.2); Calc. Creatinine Clearance 0 mL/min (70-130); Calcium 9.3 mg/dL (7.8-10.44); Carbon Dioxide 23 mmol/L (23-31); Chloride 101 mmol/L (98-107); Estimated GFR 71; Globulin 3.8 g/dL (2.4-3.5); Glucose 96 mg/dL (80-115); Potassium 3.8 mmol/L (3.5-5.1); Sodium 135 mmol/L (136-145)
[2023-01-23] MEDS ORDERED: Promethazine 25 MG TAB ONE (09:10)
== END 2023-01-23 09:15 | disposition home or self-care (01) ==
LOC: ERS 07:15
DX: S10.93XA Contusion of unspecified part of neck, initial encounter (principal); I10 Essential (primary) hypertension; F17.210 Nicotine dependence, cigarettes, uncomplicated; Y04.8XXA Assault by other bodily force, initial encounter
CPT/HCPCS: 36415; 70450; 70486; 71045; 72125; 80053; 80307; 85025; 85610; 85730; Q0169

== ENCOUNTER 2023-03-29 17:50 | Emergency (ER) | payer OTHER ==
[2023-03-29 18:18] LABS: #Eosinphils 0.2 thou/uL (0.0-0.7); #Monocytes 0.5 thou/uL (0.11-0.59); #Neutrophils 1.7 thou/uL (1.40-6.50); %Basophils 0.2 % (0.0-1.0); %Monocytes 12.9 % (0.0-10.0); %Neutrophils 42.7 % (42.0-75.0); Hemoglobin 12.1 g/dL (12.0-16.0); Mean Corpuscular HGB CONC 31.8 g/dL (32.0-36.0); Mean Corpuscular Hemoglobin 26.7 pg (27.0-31.0); Mean Corpuscular Volume 83.7 fl (78.0-98.0); Mean Platelet Volume 10.2 fL (7.4-10.4); Platelet Count 223 10x3/uL (130-400); RBC Distribution Width 13.5 % (11.5-14.5); Red Blood Cell (RBC) Count 4.54 mill/uL (4.20-5.40)
[2023-03-29 18:41] LABS: ALT (SGPT) 8 U/L (8-55); AST (SGOT) 13 U/L (5-34); Albumin 4.2 g/dL (3.4-4.8); Alkaline Phosphatase 60 U/L (40-110); Anion Gap 14 mmol/L (10-20); BUN (Urea Nitrogen) 13 mg/dL (9.8-20.1); Bilirubin, Total 0.5 mg/dL (0.2-1.2); Calc. Creatinine Clearance 0 mL/min (70-130); Calcium 9.4 mg/dL (7.8-10.44); Carbon Dioxide 23 mmol/L (23-31); Chloride 104 mmol/L (98-107); Estimated GFR 85; Globulin 3.6 g/dL (2.4-3.5); Glucose 139 mg/dL (80-115); Lipase 39 U/L (8-78); Potassium 3.7 mmol/L (3.5-5.1); Protein, Total 7.8 g/dL (5.8-8.1); Sodium 137 mmol/L (136-145)
[2023-03-29] MEDS ORDERED: Promethazine 25 MG TAB ONE (20:03)
[2023-03-29] MEDS ORDERED: Acetaminophen 500 MG TAB ONE (20:03)
[2023-03-29 20:19] LABS: Bacteria/HPF 4+ HPF (None Seen); Bilirubin Negative (Negative); Blood, Urine Negative (Negative); CAUTI Indications for Culture Pelvic or flank pain; Clarity Clear (Clear); Glucose, Urine (Dipstick) Normal (Negative); Ketone, Urine Negative (Negative); Leukocyte 75 Leu/uL (Negative); Nitrite 1+ (Negative); Protein, Urine (Dipstick) 10 mg/dL (Neg-Trace); RBC/HPF 0-3 HPF (0-3); Specific Gravity, Urine 1.027 (1.002-1.036); Squamous Epithelial None Seen HPF (0-3); WBC/HPF 21-50 HPF (0-3); pH, Urine 5.5 (5.0-9.0)
[2023-03-29 20:25] LABS: Urine Culture Reflex Yes Yes
[2023-03-29] MEDS ORDERED: cefTRIAXone (ROCEPHIN) 1 GM VIAL ONE (21:40)
[2023-03-29] MEDS ORDERED: Lidocaine 1% MPF 2 ML VIAL ONE (21:40)
[2023-03-30 00:27] LABS: Chlamydia by PCR, Vaginal Swab Not Detected (NotDetected); GC by PCR, Vaginal Swab Not Detected (NotDetected)
== END 2023-03-29 22:00 | disposition home or self-care (01) ==
LOC: ERS 17:50
DX: N39.0 Urinary tract infection, site not specified (principal); N05.9 Unspecified nephritic syndrome with unspecified morphologic changes; A64 Unspecified sexually transmitted disease; D72.819 Decreased white blood cell count, unspecified; I10 Essential (primary) hypertension; F17.210 Nicotine dependence, cigarettes, uncomplicated
CPT/HCPCS: 36415; 80053; 81001; 83690; 85025; 87077; 87086; 87186; 87480; 87491; 87510; 87591; 87660; 96372; 99283; J0696; Q0169

== ENCOUNTER 2024-07-08 13:09 | Emergency (ER) | payer MEDICARE, MEDICAID ==
[2024-07-08] MEDS ORDERED: Metoclopramide HCl 10 MG (2 mL) VIAL ONE (13:40)
[2024-07-08 13:46] LABS: Bacteria/HPF 2+ HPF (None Seen); Bilirubin Negative (Negative); Blood, Urine Negative (Negative); CAUTI Indications for Culture Fever or rigors; Clarity Clear (Clear); Glucose, Urine (Dipstick) Normal (Negative); Ketone, Urine Negative (Negative); Leukocyte 500 Leu/uL (Negative); Nitrite Negative (Negative); Protein, Urine (Dipstick) 20 mg/dL (Neg-Trace); RBC/HPF 0-3 HPF (0-3); Specific Gravity, Urine 1.027 (1.002-1.036); Squamous Epithelial 0-3 HPF (0-3); Urobilinogen Normal mg/dL (Less than 2); WBC/HPF Greater than 50 HPF (0-3); pH, Urine 5.5 (5.0-9.0)
[2024-07-08 13:49] LABS: Urine Culture Reflex Yes Yes
[2024-07-08 13:59] LABS: #Basophils Less than 0.03 10x3/uL (0.0-0.2); %Basophils 0.4 % (0.0-1.0); %Eosinophils 4.4 % (0.0-10.0); %Lymphocytes 33.2 % (21.0-51.0); %Monocytes 10.9 % (0.0-10.0); %Neutrophils 50.9 % (42.0-75.0); Hematocrit 35.3 % (36.0-47.0); Hemoglobin 11.5 g/dL (12.0-16.0); Mean Corpuscular HGB CONC 32.6 g/dL (32.0-36.0); Mean Corpuscular Hemoglobin 27.3 pg (27.0-31.0); Mean Corpuscular Volume 83.6 fL (78.0-98.0); Mean Platelet Volume 10.1 fL (7.4-10.4); Platelet Count 265 10x3/uL (130-400); RBC Distribution Width 13.8 % (11.5-14.5); Red Blood Cell (RBC) Count 4.22 mill/uL (4.20-5.40)
[2024-07-08 14:14] LABS: ALT (SGPT) 15 U/L (8-55); AST (SGOT) 17 U/L (5-34); Albumin 3.8 g/dL (3.4-4.8); Alkaline Phosphatase 48 U/L (40-110); Anion Gap 14 mmol/L (10-20); BUN (Urea Nitrogen) 14 mg/dL (9.8-20.1); Bilirubin, Total 0.5 mg/dL (0.2-1.2); Calc. Creatinine Clearance 0 mL/min (70-130); Calcium 9.1 mg/dL (7.8-10.44); Carbon Dioxide 23 mmol/L (23-31); Chloride 107 mmol/L (98-107); Estimated GFR 83; Globulin 3.5 g/dL (2.4-3.5); Glucose 102 mg/dL (80-115); Lipase 17 U/L (8-78); Protein, Total 7.3 g/dL (5.8-8.1); Sodium 140 mmol/L (136-145)
[2024-07-08] MEDS ORDERED: cefTRIAXone (ROCEPHIN) 1 GM VIAL ONE (14:54)
[2024-07-08] MEDS ORDERED: Acetaminophen 500 MG TAB ONE (14:57)
== END 2024-07-08 16:20 | disposition home or self-care (01) ==
LOC: ERS 13:09
DX: N39.0 Urinary tract infection, site not specified (principal); I10 Essential (primary) hypertension; R73.03 Prediabetes; F17.210 Nicotine dependence, cigarettes, uncomplicated
CPT/HCPCS: 80053; 81001; 83690; 85025; 87077; 87086; 87480; 87510; 87660; J0696; J2765; 87186; 96374; 96375

== ENCOUNTER 2024-07-31 11:10 | Outpatient (CLI) | payer MEDICARE, MEDICAID | END 2024-07-31 11:11 | disposition home or self-care (01) | LOC: MRI 11:10 | PROVIDERS: ATTEND Student in an Organized Health Care Education/Training Program | DX: M54.50 Low back pain, unspecified (principal); G89.29 Other chronic pain; M47.816 Spondylosis without myelopathy or radiculopathy, lumbar region | CPT/HCPCS: 72148 ==